=== PATIENT | male | born 1955 | race Caucasian/White ===

== ENCOUNTER 2021-07-26 01:20 | Emergency (ER) | payer MEDICARE ==
[~2021-07-26] VITALS: Ht 172.7 cm; Wt 95.5 kg
[2021-07-26 02:27] LABS: BASO # 0.04 K/mm3 (0.02-0.10); EOS # 0.15 K/mm3 (0.04-0.40); EOS % 1.1 % (0.0-4.0); HEMATOCRIT 46.4 % (42.0-52.0); HEMOGLOBIN 15.9 g/dL (13.5-18.0); MEAN CELL VOLUME 93 fl (78-100); MEAN CORPUSCULAR HEMOGLOBIN 32 pg (27-31); MEAN CORPUSCULAR HGB CONC 34 g/dL (33-37); NEU # 11.21 K/mm3 (1.40-6.50); PLATELET COUNT 225 K/mm3 (130-400); RED CELL DISTRIBUTION WIDTH 12.1 % (11.5-14.5)
[2021-07-26 02:39] LABS: ALBUMIN 4.3 g/dL (3.4-4.8); POTASSIUM 3.7 mmol/L (3.5-5.1); SODIUM 140 mmol/L (136-145)
[2021-07-26 02:41] LABS: CALCIUM 9.5 mg/dL (8.3-10.5)
[2021-07-26 02:42] LABS: GLUCOSE 129 mg/dL (75-110)
[2021-07-26 02:43] LABS: CARBON DIOXIDE 20 mmol/L (23-31)
[2021-07-26 02:44] LABS: TOTAL BILIRUBIN 0.5 mg/dL (0.2-1.2)
[2021-07-26 02:46] LABS: PROTHROMBIN TIME 11.1 SECONDS (9.0-12.0)
[2021-07-26 02:47] LABS: AST-SGOT 28 U/L (5-34)
[2021-07-26 02:48] LABS: ALT/SGPT 27 U/L (0-55)
[2021-07-26 02:55] LABS: TROPONIN-I < 0.030 ng/mL (<0.030)
[2021-07-26] MEDS ORDERED: INDOMETHACIN50 M2 PO (07:30)
[2021-07-26] MEDS ORDERED: CLOPIDOGREL PO (07:32)
[2021-07-26] MEDS ORDERED: ATORVASTATIN CA80 MG PO (07:32)
[2021-07-26] MEDS ORDERED: BUSPAR 15MG TAB15 MG PO (07:33)
[2021-07-26] MEDS ORDERED: [UNRECOGNIZED DRUG - CODE] PO (07:33)
[2021-07-26] MEDS ORDERED: BREO ELLIPTA 21 EACH IH (07:33)
[2021-07-26] MEDS ORDERED: LASIX20 M1 PO (07:34)
[2021-07-26] MEDS ORDERED: POTASSIUM99 M3 PO (07:34)
[2021-07-26] MEDS ORDERED: PROTONIX TR40 M1 PO (07:35)
[2021-07-26] MEDS ORDERED: SINGULAIR PO (07:35)
[2021-07-26] MEDS ORDERED: METOPROLOL SUCC25 M1 PO (07:36)
[2021-07-26] MEDS ORDERED: ZYRTEC ALLERGY10 MG PO (07:37)
[2021-07-26] MEDS ORDERED: COMBIVENT RESPI1 SPR IH (07:37)
[2021-07-26] MEDS ORDERED: ADULT LOW DOSE81 MG PO (07:38)
[2021-07-26] MEDS ORDERED: ZYRTEC10 M3 PO (07:38)
[2021-07-26] MEDS ORDERED: VITAMIN C500 M6 PO (07:39)
[2021-07-26] MEDS ORDERED: MULTI-VITAMIN1 EACH PO (07:40)
[2021-07-26 10:40] LABS: BASO # 0.02 K/mm3 (0.02-0.10); EOS # 0.01 K/mm3 (0.04-0.40); EOS % 0.1 % (0.0-4.0); HEMATOCRIT 42.6 % (42.0-52.0); HEMOGLOBIN 14.5 g/dL (13.5-18.0); LYMPH# 0.77 K/mm3 (1.50-4.00); MEAN CELL VOLUME 93 fl (78-100); MEAN CORPUSCULAR HEMOGLOBIN 32 pg (27-31); MEAN CORPUSCULAR HGB CONC 34 g/dL (33-37); MEAN PLATELET VOLUME 9.8 fl (7.4-10.4); MONO # 0.96 K/mm3 (0.20-0.80); NEU # 11.56 K/mm3 (1.40-6.50); PLATELET COUNT 201 K/mm3 (130-400); RED BLOOD COUNT 4.58 M/mm3 (4.20-5.60); RED CELL DISTRIBUTION WIDTH 12.4 % (11.5-14.5); WHITE BLOOD COUNT 13.4 K/mm3 (4.8-10.8)
[2021-07-26 10:48] LABS: POTASSIUM 4.2 mmol/L (3.5-5.1)
[2021-07-26 10:49] LABS: CALCIUM 8.4 mg/dL (8.3-10.5)
[2021-07-26 11:02] VITALS: BP 125/87
== END 2021-07-26 11:19 | disposition short-term general hospital (02) ==
LOC: ED 01:20
PROVIDERS: Nurse Practitioner; Physician Assistant
DX: I61.9 Nontraumatic intracerebral hemorrhage, unspecified (principal); H57.11 Ocular pain, right eye; I10 Essential (primary) hypertension; Z86.73 Personal history of transient ischemic attack (TIA), and cerebral infarction without residual deficits; Z87.891 Personal history of nicotine dependence; Z20.822 Contact with and (suspected) exposure to COVID-19
CPT/HCPCS: J1953; J2405; J3010; J7030; J7050; J7131

== ENCOUNTER 2021-08-16 12:51 | Outpatient (RCR) | payer MEDICARE ==
[~2021-08-16 12:51] MED LIST: ADULT LOW DOSE81 MG PO; ATORVASTATIN CA80 MG PO; BREO ELLIPTA 21 EACH IH; BUSPAR 15MG TAB15 MG PO; CLOPIDOGREL PO; COMBIVENT RESPI1 SPR IH; INDOMETHACIN50 M2 PO; LASIX20 M1 PO; METOPROLOL SUCC25 M1 PO; MULTI-VITAMIN1 EACH PO; POTASSIUM99 M3 PO; PROTONIX TR40 M1 PO; SINGULAIR PO; VITAMIN C500 M6 PO; ZYRTEC ALLERGY10 MG PO; ZYRTEC10 M3 PO; [UNRECOGNIZED DRUG - CODE] PO
== END 2021-08-22 | disposition home or self-care (01) ==
LOC: PT
DX: H53.9 Unspecified visual disturbance (principal); I63.89 Other cerebral infarction

== ENCOUNTER 2021-08-25 13:00 | Outpatient (RCR) | payer MEDICARE | END 2021-09-19 | disposition home or self-care (01) | LOC: PT | DX: I63.9 Cerebral infarction, unspecified (principal) ==

== ENCOUNTER 2021-09-20 13:21 | Outpatient (RCR) | payer MEDICARE | END 2021-10-20 | disposition home or self-care (01) | LOC: PT | DX: I63.9 Cerebral infarction, unspecified (principal) ==

== ENCOUNTER 2021-10-01 08:49 | Emergency (ER) | payer MEDICARE ==
[~2021-10-01] VITALS: Ht 175.3 cm; Wt 77.7 kg
[2021-10-01 09:51] LABS: BASO # 0.02 K/mm3 (0.02-0.10); EOS # 0.33 K/mm3 (0.04-0.40); EOS % 2.3 % (0.0-4.0); HEMATOCRIT 52.8 % (42.0-52.0); HEMOGLOBIN 17.6 g/dL (13.5-18.0); LYMPH# 1.83 K/mm3 (1.50-4.00); MEAN CELL VOLUME 95 fl (78-100); MEAN CORPUSCULAR HEMOGLOBIN 32 pg (27-31); MEAN CORPUSCULAR HGB CONC 33 g/dL (33-37); MEAN PLATELET VOLUME 10.7 fl (7.4-10.4); MONO # 1.23 K/mm3 (0.20-0.80); PLATELET COUNT 248 K/mm3 (130-400); RED BLOOD COUNT 5.57 M/mm3 (4.20-5.60); RED CELL DISTRIBUTION WIDTH 13.2 % (11.5-14.5); WHITE BLOOD COUNT 14.3 K/mm3 (4.8-10.8)
[2021-10-01 09:58] LABS: ALBUMIN 4.5 g/dL (3.4-4.8)
[2021-10-01 09:59] LABS: POTASSIUM 4.1 mmol/L (3.5-5.1)
[2021-10-01 10:00] LABS: CALCIUM 10.1 mg/dL (8.3-10.5)
[2021-10-01 10:01] LABS: TOTAL PROTEIN 7.6 g/dL (6.2-8.1)
[2021-10-01 10:03] LABS: TOTAL BILIRUBIN 0.6 mg/dL (0.2-1.2)
[2021-10-01 10:10] LABS: URINE APPEARANCE CLEAR; URINE COLOR STRAW
[2021-10-01 10:11] LABS: URINE BILIRUBIN NEGATIVE (NEGATIVE); URINE BLOOD NEGATIVE (NEGATIVE); URINE GLUCOSE NEGATIVE (NEGATIVE); URINE KETONE NEGATIVE (NEGATIVE); URINE LEUKOCYTE ESTERASE NEGATIVE (NEGATIVE); URINE NITRATE NEGATIVE (NEGATIVE); URINE PROTEIN(semi-quant) TRACE (NEGATIVE); URINE UROBILINOGEN NORMAL (NORMAL); URINE WBC 0-1 /hpf (0-3)
[2021-10-01 10:17] LABS: PARTIAL THROMBOPLASTIN TIME 19.7 SECONDS (21.0-32.0)
[2021-10-01 10:21] LABS: PROTHROMBIN TIME 9.8 SECONDS (9.0-12.0)
[2021-10-01 11:03] VITALS: BP 116/104
== END 2021-10-01 11:08 | disposition home or self-care (01) ==
LOC: ED 08:49
PROVIDERS: Family Medicine
DX: R05.9 Cough, unspecified (principal)

== ENCOUNTER 2021-11-29 13:30 | Outpatient (RCR) | payer MEDICARE | END 2021-12-20 | disposition home or self-care (01) | LOC: SPEECH | DX: R53.81 Other malaise (principal); Z86.73 Personal history of transient ischemic attack (TIA), and cerebral infarction without residual deficits ==

== ENCOUNTER 2021-12-13 14:25 | Outpatient (RCR) | payer MEDICARE | END 2021-12-20 | disposition home or self-care (01) | LOC: PT | DX: G45.9 Transient cerebral ischemic attack, unspecified (principal) ==

== ENCOUNTER 2021-12-26 10:30 | Outpatient (RCR) | payer MEDICARE | END 2022-01-19 | disposition still patient (30) | LOC: PT | DX: Z86.73 Personal history of transient ischemic attack (TIA), and cerebral infarction without residual deficits (principal) ==

== ENCOUNTER 2021-12-27 10:00 | Outpatient (RCR) | payer MEDICARE | END 2022-01-19 | disposition still patient (30) | LOC: SPEECH | DX: I69.328 Other speech and language deficits following cerebral infarction (principal) ==

== ENCOUNTER 2022-01-24 10:00 | Outpatient (RCR) | payer MEDICARE | END 2022-02-19 | disposition home or self-care (01) | LOC: PT | DX: G45.9 Transient cerebral ischemic attack, unspecified (principal) ==

== ENCOUNTER 2022-01-24 10:00 | Outpatient (RCR) | payer MEDICARE | END 2022-02-19 | disposition home or self-care (01) | LOC: SPEECH | DX: I69.30 Unspecified sequelae of cerebral infarction (principal) ==

== ENCOUNTER 2022-02-02 10:30 | Outpatient (RCR) | payer MEDICARE | END 2022-02-19 | disposition home or self-care (01) | LOC: OT | DX: M25.512 Pain in left shoulder (principal) ==

== ENCOUNTER 2022-02-20 07:56 | Outpatient (RCR) | payer MEDICARE | END 2022-03-21 14:05 | disposition home or self-care (01) | LOC: PT 07:56 | DX: G45.9 Transient cerebral ischemic attack, unspecified (principal) ==

== ENCOUNTER 2022-02-21 07:59 | Outpatient (RCR) | payer MEDICARE | END 2022-03-22 | disposition home or self-care (01) | LOC: OT | DX: M25.512 Pain in left shoulder (principal) ==

== ENCOUNTER 2022-02-21 08:03 | Outpatient (RCR) | payer MEDICARE | END 2022-03-22 | disposition home or self-care (01) | LOC: SPEECH | DX: I69.398 Other sequelae of cerebral infarction (principal) ==

== ENCOUNTER 2022-03-23 09:09 | Outpatient (RCR) | payer MEDICARE | END 2022-04-19 09:11 | disposition home or self-care (01) | LOC: SPEECH 09:09 | DX: F43.9 Reaction to severe stress, unspecified (principal) ==

== ENCOUNTER 2022-05-23 08:00 | Outpatient (RCR) | payer MEDICARE | END 2022-06-21 | disposition still patient (30) | LOC: PT | DX: M54.59 Other low back pain (principal) ==

== ENCOUNTER 2022-09-20 10:51 | Outpatient (RCR) | payer MEDICARE | END 2022-10-20 | disposition home or self-care (01) | LOC: OT | DX: I69.30 Unspecified sequelae of cerebral infarction (principal) ==

== ENCOUNTER 2023-02-20 07:47 | Outpatient (RCR) | payer MEDICARE | END 2023-03-22 | disposition home or self-care (01) | LOC: PT | DX: M54.6 Pain in thoracic spine (principal) ==

== ENCOUNTER 2023-07-10 12:04 | Outpatient (RCR) | payer MEDICARE | END 2023-07-22 | LOC: PT | DX: M19.112 Post-traumatic osteoarthritis, left shoulder (principal); Z96.612 Presence of left artificial shoulder joint ==

== ENCOUNTER 2023-07-24 08:00 | Outpatient (RCR) | payer MEDICARE | END 2023-08-22 | disposition home or self-care (01) | LOC: PT | DX: M19.112 Post-traumatic osteoarthritis, left shoulder (principal); Z96.612 Presence of left artificial shoulder joint ==

== ENCOUNTER 2023-08-23 08:30 | Outpatient (RCR) | payer MEDICARE | END 2023-09-20 | disposition home or self-care (01) | LOC: PT | DX: Z96.612 Presence of left artificial shoulder joint (principal) ==

== ENCOUNTER 2023-09-17 11:07 | Outpatient (RCR) | payer MEDICARE | END 2023-09-20 | disposition home or self-care (01) | LOC: SPEECH | DX: Z86.73 Personal history of transient ischemic attack (TIA), and cerebral infarction without residual deficits (principal) ==

== ENCOUNTER → 2023-11-15 | Outpatient (CLI) | payer MEDICARE | LOC: RAD 13:52 | DX: R05.3 Chronic cough (principal); I63.9 Cerebral infarction, unspecified ==

== ENCOUNTER 2024-03-04 05:09 | Emergency (ER) | payer MEDICARE ==
[~2024-03-04] VITALS: Ht 175.3 cm; Wt 86.4 kg
[2024-03-04] MEDS ORDERED: Ondansetron 4 MG/2 ML VIAL IV ONE (05:30)
[2024-03-04] MEDS ORDERED: NS 1,000 ML IV SCH ×2 (05:30→08:00)
[2024-03-04] MEDS ORDERED: fentaNYL 100 MCG/2 ML VIAL IV ONE ×2 (05:30→06:00)
[2024-03-04 05:36] LABS: BASO # 0.03 K/mm3 (0.02-0.10); EOS # 0.21 K/mm3 (0.04-0.40); EOS % 1.8 % (0.0-4.0); HEMATOCRIT 48.1 % (42.0-52.0); HEMOGLOBIN 15.9 g/dL (13.5-18.0); LYMPH# 2.33 K/mm3 (1.50-4.00); MEAN CELL VOLUME 97 fl (78-100); MEAN CORPUSCULAR HEMOGLOBIN 32 pg (27-31); MEAN CORPUSCULAR HGB CONC 33 g/dL (33-37); NEU # 7.95 K/mm3 (1.40-6.50); PLATELET COUNT 236 K/mm3 (130-400); RED BLOOD COUNT 4.98 M/mm3 (4.20-5.60); RED CELL DISTRIBUTION WIDTH 13.2 % (11.5-14.5); WHITE BLOOD COUNT 11.9 K/mm3 (4.8-10.8)
[2024-03-04 05:43] LABS: ALBUMIN 4.3 g/dL (3.4-4.8)
[2024-03-04 05:45] LABS: CALCIUM 9.6 mg/dL (8.3-10.5)
[2024-03-04 05:46] LABS: TOTAL PROTEIN 6.8 g/dL (6.2-8.1)
[2024-03-04 05:48] LABS: TOTAL BILIRUBIN 0.5 mg/dL (0.2-1.2)
[2024-03-04] MEDS ORDERED: Ketorolac 30 MG/ML VIAL IV ONE (06:30)
[2024-03-04] MEDS ORDERED: ADVAIR DISKUS1 DS1 IH (07:02)
[2024-03-04] MEDS ORDERED: ATROVENT NASAL15 ML NS (07:03)
[2024-03-04] MEDS ORDERED: RT ALBUTEROL CC18 GM IH (07:03)
[2024-03-04] MEDS ORDERED: FLONASE ALLERG9.9 ML NS (07:04)
[2024-03-04] MEDS ORDERED: TYLENOL EXTRA500 M2 PO (07:05)
[2024-03-04] MEDS ORDERED: B-COMPLEX1 EACH PO (07:05)
[2024-03-04] MEDS ORDERED: MUCINEX 60600 MG/TA1 PO (07:06)
[2024-03-04] MEDS ORDERED: FAMOTIDINE40 M1 PO (07:06)
[2024-03-04] MEDS ORDERED: IRBESARTAN75 MG PO (07:07)
[2024-03-04] MEDS ORDERED: KEPPRA 500MG500 MG PO (07:08)
[2024-03-04] MEDS ORDERED: POTASSIUM CHLO10 ME7 PO (07:09)
[2024-03-04] MEDS ORDERED: LEADER MELATONIN5 MG PO (07:10)
[2024-03-04] MEDS ORDERED: PREGABALIN50 MG PO (07:10)
[2024-03-04] MEDS ORDERED: Morphine 4 MG/ML VIAL IV ONE (08:53)
[2024-03-04] MEDS ORDERED: ONDANSETRON HYDR4 MG PO (09:24)
[2024-03-04] MEDS ORDERED: FLOMAX0.4 MG PO (09:24)
[2024-03-04] MEDS ORDERED: Home HYDROcodone/Acetaminophen 5/325 MG #4 TABS/PACK PO ONE (09:30)
[2024-03-04 09:46] VITALS: BP 125/85
== END 2024-03-04 09:40 | disposition home or self-care (01) ==
LOC: ED 05:09
PROVIDERS: Physician Assistant
DX: N13.2 Hydronephrosis with renal and ureteral calculous obstruction (principal); Z79.02 Long term (current) use of antithrombotics/antiplatelets
CPT/HCPCS: J1885; J2270; J2405; J3010; J7030

== ENCOUNTER 2024-03-06 05:06 | Emergency (ER) | payer MEDICARE ==
[~2024-03-06 05:06] MED LIST changes: +ADVAIR DISKUS1 DS1 IH; +ATROVENT NASAL15 ML NS; +B-COMPLEX1 EACH PO; +FAMOTIDINE40 M1 PO; +FLOMAX0.4 MG PO; +FLONASE ALLERG9.9 ML NS; +IRBESARTAN75 MG PO; +KEPPRA 500MG500 MG PO; +LEADER MELATONIN5 MG PO; +MUCINEX 60600 MG/TA1 PO; +ONDANSETRON HYDR4 MG PO; +POTASSIUM CHLO10 ME7 PO; +PREGABALIN50 MG PO; +RT ALBUTEROL CC18 GM IH; +TYLENOL EXTRA500 M2 PO
[2024-03-06] MEDS ORDERED: fentaNYL 100 MCG/2 ML VIAL IM ONE (06:00)
[2024-03-06] MEDS ORDERED: NORCO 325 MG-51 TA1 PO (06:05)
[2024-03-06] MEDS ORDERED: Home HYDROcodone/Acetaminophen 5/325 MG #4 TABS/PACK PO ONE (06:15)
[2024-03-06 06:20] VITALS: BP 136/93
== END 2024-03-06 06:20 | disposition home or self-care (01) ==
LOC: ED 05:06
DX: N20.0 Calculus of kidney (principal)
CPT/HCPCS: J3010

== ENCOUNTER 2024-05-30 11:00 | Outpatient (RCR) | payer MEDICARE ==
[~2024-05-30 11:00] MED LIST changes: +NORCO 325 MG-51 TA1 PO
== END 2024-06-21 ==
LOC: SPEECH
DX: I69.359 Hemiplegia and hemiparesis following cerebral infarction affecting unspecified side (principal)

== ENCOUNTER 2024-06-22 08:00 | Outpatient (RCR) | payer MEDICARE ==
[2024-07-08] MEDS ORDERED: CYMBALTA30 M1 PO (17:16)
[2024-07-08] MEDS ORDERED: BACLOFEN10 M1 PO (17:17)
[2024-07-11] MEDS ORDERED: LOPRESSOR 225 MG/TAB PO (11:49)
[2024-07-11] MEDS ORDERED: PEPCID40 M1 PO (11:51)
[2024-07-11] MEDS ORDERED: BASAGLAR T100 UNIT/1 SQ (12:00)
[2024-07-11] MEDS ORDERED: INSULIN AS100 UNIT/3 SQ (12:01)
[2024-07-15] MEDS ORDERED: DOXYCYCLINE MO100 M3 PO (09:41)
[2024-07-15] MEDS ORDERED: DEXAMETHASONE6 M1 PO (09:42)
[2024-07-15] MEDS ORDERED: FLOMAX0.4 MG PO (09:42)
[2024-07-15] MEDS ORDERED: BASAGLAR T100 UNIT/1 SQ (09:43)
[2024-07-15] MEDS ORDERED: INSULIN AS100 UNIT/3 SQ (09:44)
[2024-07-15] MEDS ORDERED: HUMALOG JU100 UNIT/1 SQ (10:25)
== END 2024-07-22 ==
LOC: SPEECH
DX: Z86.73 Personal history of transient ischemic attack (TIA), and cerebral infarction without residual deficits (principal)

== ENCOUNTER 2024-07-08 16:20 | Emergency (ER) | payer MEDICARE ==
[2024-07-08 17:05] VITALS: BP 131/84
[2024-07-08 17:08] LABS: HEMATOCRIT 49.4 % (42.0-52.0); HEMOGLOBIN 16.8 g/dL (13.5-18.0); MEAN CELL VOLUME 93 fl (78-100); MEAN CORPUSCULAR HEMOGLOBIN 32 pg (27-31); MEAN CORPUSCULAR HGB CONC 34 g/dL (33-37); MEAN PLATELET VOLUME 10.1 fl (7.4-10.4); RED BLOOD COUNT 5.32 M/mm3 (4.20-5.60); RED CELL DISTRIBUTION WIDTH 12.7 % (11.5-14.5); WHITE BLOOD COUNT 12.8 K/mm3 (4.8-10.8)
[2024-07-08 17:09] LABS: ALBUMIN 4.7 g/dL (3.4-4.8)
[2024-07-08 17:10] LABS: CALCIUM 10.3 mg/dL (8.3-10.5)
[2024-07-08 17:11] LABS: TOTAL PROTEIN 8.2 g/dL (6.2-8.1)
[2024-07-08 17:13] LABS: TOTAL BILIRUBIN 0.9 mg/dL (0.2-1.2)
[2024-07-08] MEDS ORDERED: CYMBALTA30 M1 PO (17:16)
[2024-07-08] MEDS ORDERED: BACLOFEN10 M1 PO (17:17)
[2024-07-08] MEDS ORDERED: NS 1,000 ML IV SCH ×2 (17:45→19:00)
[2024-07-08 17:59] LABS: LYMPHOCYTE 9 % (20-51); MONOCYTE 5 % (3-10); NEUTROPHILS 84 % (42-75)
[2024-07-08 18:02] LABS: PLATELET COUNT 209 K/mm3 (130-400)
[2024-07-08] MEDS ORDERED: Insulin Lispro (HumaLOG) SQ ONE (19:00)
[2024-07-08 19:08] LABS: URINE APPEARANCE CLEAR (CLEAR); URINE COLOR YELLOW (YELLOW)
[2024-07-08 19:09] LABS: URINE BILIRUBIN NEGATIVE (NEGATIVE); URINE BLOOD NEGATIVE (NEGATIVE); URINE GLUCOSE 2+ (NEGATIVE); URINE KETONE 1+ (NEGATIVE); URINE LEUKOCYTE ESTERASE NEGATIVE (NEGATIVE); URINE NITRATE NEGATIVE (NEGATIVE); URINE PROTEIN(semi-quant) 2+ (NEGATIVE); URINE WBC 0-1 /hpf (0-3)
[2024-07-08] MEDS ORDERED: Piperacillin/Tazobactam Sodium 3.375 GM in NS 100 ML IV ONE (20:30)
== END 2024-07-08 22:45 | disposition short-term general hospital (02) ==
LOC: ED 16:20
DX: R41.82 Altered mental status, unspecified (principal); E11.65 Type 2 diabetes mellitus with hyperglycemia; N17.9 Acute kidney failure, unspecified; R65.10 Systemic inflammatory response syndrome (SIRS) of non-infectious origin without acute organ dysfunction; R00.0 Tachycardia, unspecified; Z87.891 Personal history of nicotine dependence; Z86.73 Personal history of transient ischemic attack (TIA), and cerebral infarction without residual deficits
CPT/HCPCS: J1815; J2543; J3370; J7030; J7050

== ENCOUNTER 2024-07-11 11:40 | Inpatient (IN) | payer MEDICARE ==
[~2024-07-11] VITALS: Ht 22.9 cm; Wt 85.8 kg
[~2024-07-11 11:40] MED LIST changes: +BACLOFEN10 M1 PO; +CYMBALTA30 M1 PO
[2024-07-11] MEDS ORDERED: LOPRESSOR 225 MG/TAB PO (11:49)
[2024-07-11] MEDS ORDERED: PEPCID40 M1 PO (11:51)
[2024-07-11] MEDS ORDERED: BASAGLAR T100 UNIT/1 SQ (12:00)
[2024-07-11] MEDS ORDERED: INSULIN AS100 UNIT/3 SQ (12:01)
[2024-07-11] MEDS ORDERED: Insulin Lispro (HumaLOG) SQ SCH (12:08)
[2024-07-11 12:09] VITALS: BP 144/97
[2024-07-11] MEDS ORDERED: Acetaminophen 325 MG TAB PO PRN (12:45)
[2024-07-11] MEDS ORDERED: Melatonin 3 MG TAB PO PRN (13:15)
[2024-07-11] MEDS ORDERED: Baclofen 10 MG TAB PO PRN (13:15)
[2024-07-11] MEDS ORDERED: Albuterol 90 MCG/PUFF MDI IH PRN (13:15)
--- NOTE | 2024-07-11 14:27 | NUR ---
PT ARRIVED WITH IN PRIVATE VEHICLE AT 1145. PT AMBULATED WITH STANDBY ASSISTANCE INTO ROOM. PT DENIES PAIN. ALERT AND ORIENTED. STATES HE FEELS WEAKER THAN NORMAL. DENIES SHORTNESS OF BREATH. LAST BM 07/10/24 WHICH HE STATES HE HAD SEVERAL LOOSE STOOLS. INFORMED PATIENT THAT IF LOOSE STOOLS START AGAIN WE WILL LIKELY TEST IT. WILL BE IN DROPLET/CONTACT PRECAUTIONS UNTIL 07/19.
--- NOTE | 2024-07-11 18:49 | NUR ---
REPORT GIVEN TO JAYDON COSME
[2024-07-11] MEDS ORDERED: Doxycycline Monohydrate 100 MG CAP PO SCH (19:00)
[2024-07-11 19:49] VITALS: BP 139/92
[2024-07-11] MEDS ORDERED: Famotidine 20 MG TAB PO SCH (21:00)
[2024-07-11] MEDS ORDERED: Formoterol 20 MCG,Budesonide 0.5 MG IH SCH (21:00)
[2024-07-11] MEDS ORDERED: levETIRAcetam 500 MG TAB PO SCH (21:00)
[2024-07-11] MEDS ORDERED: busPIRone 5 MG TAB PO SCH (21:00)
[2024-07-11] MEDS ORDERED: Atorvastatin 80 MG TAB PO SCH (21:00)
[2024-07-11] MEDS ORDERED: Metoprolol Tartrate 25 MG TAB PO SCH (21:00)
[2024-07-11] MEDS ORDERED: Furosemide 20 MG TAB PO SCH (21:00)
[2024-07-11] MEDS ORDERED: Insulin Glargine-ygfn (Lantus) SQ SCH (21:00)
--- NOTE | 2024-07-11 21:00 | NUR ---
Patient sitting up watching TV. Denies pain. States becomes more short of breath in the night "haven't had breathing treatment since this am". Noted that lasix is ordered at [address] Ceron/hold dose tonight and change the times per Dr. Ceron. HS meds all reviewed and given. Tolerated breathing treatment well. Up to the bathroom 1 assist without walker and gait mostly steady. Voids and rests back in bed. Assisted with sweats over feet. Initially took gown off then assisted with it back on. SCD's reviewed and applied.
--- NOTE | 2024-07-11 21:00 | NUR ---
Dr. Ceron notified of patients accu check of [id number].
--- NOTE | 2024-07-12 06:07 | NUR ---
Patient states he slept well this noc.
[2024-07-12 07:00] VITALS: BP 123/80
[2024-07-12] MEDS ORDERED: Furosemide 20 MG TAB PO SCH (08:00)
[2024-07-12] MEDS ORDERED: dexAMETHasone 4 MG TAB PO SCH (09:00)
[2024-07-12] MEDS ORDERED: Clopidogrel 75 MG TAB PO SCH (09:00)
[2024-07-12] MEDS ORDERED: Cyanocobalamin (Vit B-12) 1,000 MCG TAB PO SCH (09:00)
[2024-07-12] MEDS ORDERED: Cetirizine 10 MG TAB PO SCH (09:00)
[2024-07-12] MEDS ORDERED: Montelukast 10 MG TAB PO SCH (09:00)
[2024-07-12] MEDS ORDERED: DULoxetine 30 MG CAP PO SCH (09:00)
[2024-07-12 19:57] VITALS: BP 120/79
--- NOTE | 2024-07-12 23:00 | NUR ---
PATIENT RESTING IN RECLINER MOST OF SHIFT THUS FAR. UP TO TOILET AD CHERYL. HAS CALL OUT FOR ASSIST X 2 INSTEAD OF USING CALL LIGHT. EDUCATED ON AND DEMONSTRATED PROPER CALL LIGHT USAGE. HOPING TO GET HOME FOR XMAS
--- NOTE | 2024-07-13 03:47 | NUR ---
PATIENT RESTING IN BED, EYES CLOSED. BREATHING UNLABORED ON RA. CALL LIGHT IN REACH.
--- NOTE | 2024-07-13 05:38 | NUR ---
PATIENT WAKES EASILY WITH VERBAL STIMULI. MEDS TAKEN WITHOUT ISSUE. DENIES PAIN OR DISCOMFORT AT THIS TIME. COVID PRECAUTIONS CONTINUE. CALL LIGHT IN REACH
--- NOTE | 2024-07-13 07:00 | NUR ---
REPORT RECEIEVED FORM JAYDON MODI
[2024-07-13 07:53] VITALS: BP 108/81
[2024-07-13 08:10] VITALS: BP 131/84
--- NOTE | 2024-07-13 08:15 | NUR ---
PATIENT SITTING IN CHAIR WITH TV ON. A&Ox4, DENIES PAIN. PATIENT HAS ROOM PRIVILEGES. ASSESSMENT COMPLETE, MEDICATIONS ADMINISTERED, PATIENT DENIES OTHER NEEDS OR COMPLAINTS AT THIS TIME. CALL LIGHT WITHIN REACH.
--- NOTE | 2024-07-13 17:05 | NUR ---
PATIENT BLOOD SUGAR 449. PROVIDER AWARE
[2024-07-13 19:00] VITALS: BP 133/91
--- NOTE | 2024-07-13 19:09 | NUR ---
REPORT GIVEN TO JAYDON SO
[2024-07-14 07:23] LABS: BASO # 0.01 K/mm3 (0.02-0.10); HEMATOCRIT 39.5 % (42.0-52.0); HEMOGLOBIN 13.2 g/dL (13.5-18.0); LYMPH# 1.32 K/mm3 (1.50-4.00); MEAN CELL VOLUME 95 fl (78-100); MEAN CORPUSCULAR HEMOGLOBIN 32 pg (27-31); MEAN CORPUSCULAR HGB CONC 33 g/dL (33-37); MEAN PLATELET VOLUME 10.3 fl (7.4-10.4); MONO # 0.91 K/mm3 (0.20-0.80); NEU # 8.28 K/mm3 (1.40-6.50); PLATELET COUNT 154 K/mm3 (130-400); RED BLOOD COUNT 4.18 M/mm3 (4.20-5.60); RED CELL DISTRIBUTION WIDTH 12.5 % (11.5-14.5); WHITE BLOOD COUNT 10.9 K/mm3 (4.8-10.8)
[2024-07-14 07:31] LABS: ALBUMIN 3.2 g/dL (3.4-4.8)
[2024-07-14 07:32] LABS: CALCIUM 8.7 mg/dL (8.3-10.5)
[2024-07-14 07:33] LABS: TOTAL PROTEIN 5.9 g/dL (6.2-8.1)
[2024-07-14 07:35] LABS: TOTAL BILIRUBIN 0.2 mg/dL (0.2-1.2)
[2024-07-14 08:04] VITALS: BP 128/84
[2024-07-14 19:00] VITALS: BP 140/93
[2024-07-15 07:00] VITALS: BP 136/87
--- NOTE | 2024-07-15 07:00 | NUR ---
RESUMED CARE FROM JAYDON SO.
[2024-07-15] MEDS ORDERED: DOXYCYCLINE MO100 M3 PO (09:41)
[2024-07-15] MEDS ORDERED: DEXAMETHASONE6 M1 PO (09:42)
[2024-07-15] MEDS ORDERED: FLOMAX0.4 MG PO (09:42)
[2024-07-15] MEDS ORDERED: BASAGLAR T100 UNIT/1 SQ (09:43)
[2024-07-15] MEDS ORDERED: INSULIN AS100 UNIT/3 SQ (09:44)
[2024-07-15] MEDS ORDERED: HUMALOG JU100 UNIT/1 SQ (10:25)
--- NOTE | 2024-07-15 10:55 | NUR ---
PATIENT A&OX4. DENIES PAIN, SOA, HEADACHE, N/V/D, OR DIZZINESS. DISCHARGE INSTRUCTIONS PROVIDED TO PAITENT AND . ALL QUESTIONS ANSWERED. NEW RX SENT TO PREFERRED PHARMACY, SPOKE TO PHARMACY AND MEDICATIONS ARE AVAILABLE. PATIENT ASSISTED VIA WHEELCHAIR TO POV WITH KIMBER SHAFFER WITHOUT INCIDENT. ALL PERSONAL BELONGINGS TAKEN WITH.
== END 2024-07-15 10:55 | disposition home or self-care (01) | DRG 193 ==
LOC: MED/SURG 11:40
PROVIDERS: ADMIT Family Medicine
DX: J12.82 Pneumonia due to coronavirus disease 2019 (principal); U07.1 COVID-19; I12.9 Hypertensive chronic kidney disease with stage 1 through stage 4 chronic kidney disease, or unspecified chronic kidney disease; N18.30 Chronic kidney disease, stage 3 unspecified; J44.9 Chronic obstructive pulmonary disease, unspecified; I69.398 Other sequelae of cerebral infarction; G40.909 Epilepsy, unspecified, not intractable, without status epilepticus; E11.9 Type 2 diabetes mellitus without complications; K21.9 Gastro-esophageal reflux disease without esophagitis; N40.0 Benign prostatic hyperplasia without lower urinary tract symptoms; E78.5 Hyperlipidemia, unspecified; F32.A Depression, unspecified; Z79.82 Long term (current) use of aspirin; Z79.51 Long term (current) use of inhaled steroids
CPT/HCPCS: A9270; J1815

== ENCOUNTER 2024-09-06 10:01 | Emergency (ER) | payer MEDICARE ==
[~2024-09-06] VITALS: Ht 175.3 cm; Wt 78.1 kg
[~2024-09-06 10:01] MED LIST changes: +BASAGLAR T100 UNIT/1 SQ; +DEXAMETHASONE6 M1 PO; +DOXYCYCLINE MO100 M3 PO; +HUMALOG JU100 UNIT/1 SQ; +INSULIN AS100 UNIT/3 SQ; +LOPRESSOR 225 MG/TAB PO; +PEPCID40 M1 PO
[2024-09-06 10:57] LABS: BASO # 0.02 K/mm3 (0.02-0.10); EOS # 0.16 K/mm3 (0.04-0.40); HEMATOCRIT 46.1 % (42.0-52.0); HEMOGLOBIN 14.9 g/dL (13.5-18.0); LYMPH# 1.57 K/mm3 (1.50-4.00); MEAN CELL VOLUME 96 fl (78-100); MEAN CORPUSCULAR HEMOGLOBIN 31 pg (27-31); MEAN CORPUSCULAR HGB CONC 32 g/dL (33-37); MEAN PLATELET VOLUME 9.4 fl (7.4-10.4); MONO # 0.73 K/mm3 (0.20-0.80); NEU # 5.31 K/mm3 (1.40-6.50); PLATELET COUNT 208 K/mm3 (130-400); RED BLOOD COUNT 4.81 M/mm3 (4.20-5.60); RED CELL DISTRIBUTION WIDTH 15.3 % (11.5-14.5); WHITE BLOOD COUNT 7.9 K/mm3 (4.8-10.8)
[2024-09-06 11:02] LABS: ALBUMIN 3.4 g/dL (3.4-4.8)
[2024-09-06] MEDS ORDERED: LANTUS PEN100 U/ML SQ (11:02)
[2024-09-06 11:03] LABS: CALCIUM 9.3 mg/dL (8.3-10.5)
[2024-09-06 11:05] LABS: TOTAL PROTEIN 7.1 g/dL (6.2-8.1)
[2024-09-06 11:06] LABS: TOTAL BILIRUBIN 0.6 mg/dL (0.2-1.2)
[2024-09-06] MEDS ORDERED: ASPIRIN E.C. 8181 MG PO (11:20)
[2024-09-06 11:37] LABS: URINE APPEARANCE SLIGHTLY CLOUDY (CLEAR); URINE COLOR YELLOW (YELLOW); URINE GLUCOSE NEGATIVE (NEGATIVE); URINE KETONE TRACE (NEGATIVE); URINE PROTEIN(semi-quant) 2+ (NEGATIVE)
[2024-09-06 11:38] LABS: URINE BILIRUBIN NEGATIVE (NEGATIVE); URINE BLOOD NEGATIVE (NEGATIVE); URINE LEUKOCYTE ESTERASE NEGATIVE (NEGATIVE); URINE MUCUS PRESENT (NOT PRESENT); URINE NITRATE NEGATIVE (NEGATIVE); URINE WBC 0-1 /hpf (0-3)
[2024-09-06] MEDS ORDERED: NS 1,000 ML IV SCH (13:45)
[2024-09-06 18:03] VITALS: BP 122/99
== END 2024-09-06 18:03 | disposition home or self-care (01) ==
LOC: ED 10:01
PROVIDERS: Family Medicine
DX: M62.81 Muscle weakness (generalized) (principal); I10 Essential (primary) hypertension; E86.9 Volume depletion, unspecified; E11.9 Type 2 diabetes mellitus without complications; Z86.73 Personal history of transient ischemic attack (TIA), and cerebral infarction without residual deficits
CPT/HCPCS: J7030